=== PATIENT | male | born 1955 | race Caucasian/White ===

== ENCOUNTER 2020-07-29 19:10 | Inpatient (IN) | payer OTHER ==
[~2020-07-29] VITALS: Ht 182.9 cm; Wt 87.3 kg
--- NOTE | 2020-07-29 19:23 | NUR ---
BIB AMBULANCE FROM [facility]. PT C/O SOB X4 DAYS. TRACHEA SHIFT SEEN ON CT. PT CONNECTED TO MONITORING. CONTINUES ON OXYGEN 15L NON-REBREATHER. EKG COMPLETE. 2 PIV PATENT. PT BREATHING RAPID, BUT REGULAR BREATHING. PT DENIES HOME MEDS OR PMH. MD AT BEDSIDE FOR ASSESSMENT.
[2020-07-29] MEDS ORDERED: SODIUM CHLORIDE FLUSH 10ML SYR IVF ONE (19:30)
[2020-07-29] MEDS ORDERED: SODIUM CHLORIDE 0.9% 1,000ML IVBOLUS ONE (19:30)
[2020-07-29] MEDS ORDERED: OMNIPAQUE 350 MG/ML, 75ML BOTTLE ONE (19:48)
--- NOTE | 2020-07-29 19:53 | NUR ---
PT BACK FROM CT.
[2020-07-29] MEDS ORDERED: CEFTRIAXONE PMX 1GM/50ML 50 ML IVPB ONE (20:00)
[2020-07-29] MEDS ORDERED: CEFTRIAXONE PMX 1GM/50ML 50 ML ONE (20:08)
[2020-07-29 20:46] LABS: BASOPHILS % (AUTO) 0 % (0-1); EOSINOPHILS % (AUTO) 0 % (1-7); LYMPHOCYTES % (AUTO) 6 % (22-44); MEAN CORPUSCULAR HGB CONC 32.6 g/dL (33.2-36.2); MEAN PLATELET VOLUME 8.2 fL (7.4-10.4); MONOCYTES % (AUTO) 7 % (2-9); NEUTROPHILS % (AUTO) 87 % (42-75); PLATELET COUNT 306 x10^3/uL (130-400); RED BLOOD COUNT 5.52 x10^6/uL (4.38-5.82); RED CELL DISTRIBUTION WIDTH 14.2 % (9.4-14.8)
[2020-07-29 20:50] LABS: ALANINE AMINOTRANSFERASE 704 U/L (12-78); ALBUMIN 3.4 g/dL (3.4-5.0); ANION GAP 13 mmol/L (5-15); CALCIUM 9.6 mg/dL (8.5-10.1); CHLORIDE 102 mmol/L (98-107); CREATININE 1.31 mg/dL (0.7-1.3)
[2020-07-29 20:54] LABS: ALKALINE PHOSPHATASE 108 U/L (45-117); BILIRUBIN,TOTAL 2.1 mg/dL (0.2-1.0); TOTAL PROTEIN 6.9 g/dL (6.4-8.2); TROPONIN I < 0.015 ng/mL (0.000-0.045)
--- NOTE | 2020-07-29 21:25 | NUR ---
LEADERSHIP DEVELOPMENT MANAGER: CARDIOVASCULAR US TECH CALLED IN AT THIS TIME PER CARDS DR. MAZA REQUEST.
--- NOTE | 2020-07-29 21:30 | NUR ---
HOSPITALIST AT BEDSIDE.
[2020-07-29 21:33] LABS: MD SCAN
--- NOTE | 2020-07-29 21:39 | NUR ---
IR AT BEDSIDE.
[2020-07-29] MEDS ORDERED: LIDOCAINE 1%, 10ML ONE (21:41)
[2020-07-29] MEDS ORDERED: GUAIFENESIN/DM 200-20MG, 10ML UDC PO PRN (22:00)
[2020-07-29] MEDS ORDERED: SODIUM CHLORIDE 0.9% 1,000 ML IV SCH (22:00)
[2020-07-29] MEDS ORDERED: DOCUSATE 100 MG CAPSULE PO PRN (22:00)
[2020-07-29] MEDS ORDERED: ONDANSETRON 2MG/ML, 2ML IVPush PRN (22:00)
[2020-07-29] MEDS ORDERED: DIGOXIN 0.25 MG/ML, 2ML ONE (22:09)
--- NOTE | 2020-07-29 22:16 | NUR ---
BACKHOE OPERATOR, DR MAZA, AT BEDSIDE. RECEIVED V/O FOR DIGOXIN 0.5MG IV ONCE. MD STATES WILL INPUT ORDER. NO CHANGE IN HR. PT TO GO TO DESKIDDING MACHINE OPERATOR
[2020-07-29] MEDS ORDERED: DIGOXIN 0.25 MG/ML, 2ML IVPush ONE (22:30)
--- NOTE | 2020-07-29 22:32 | NUR ---
REPORT GIVEN TO ERIK MOON IN CCU. PT TO GO TO ROOM 548 AFTER ADVERTISING COORDINATOR.
[2020-07-29] MEDS ORDERED: FENTANYL PF 100 MCG/2ML ONE (23:00)
[2020-07-29] MEDS ORDERED: MIDAZOLAM 1 MG/ML, 5ML ONE (23:00)
[2020-07-29] MEDS ORDERED: LIDOCAINE 1%, 20ML ONE (23:00)
[2020-07-29] MEDS ORDERED: NOREPINEPHRINE 1 MG/ML, 4ML ONE ×2 (23:00→23:05)
--- NOTE | 2020-07-29 23:02 | NUR ---
report received from offgoing RN, pt a&ox4, calm and resting in bed, on cr monitor
[2020-07-30] MEDS ORDERED: MULT-257 PO (01:34)
[2020-07-30 02:28] LABS: CHLORIDE,URINE RANDOM 52 mmol/L; POTASSIUM,URINE RANDOM 56 mmol/L; SODIUM,URINE RANDOM 32 mmol/L
[2020-07-30 04:43] LABS: BASOPHILS % (AUTO) 0 % (0-1); EOSINOPHILS % (AUTO) 0 % (1-7); LYMPHOCYTES % (AUTO) 10 % (22-44); MEAN CORPUSCULAR HGB CONC 32.9 g/dL (33.2-36.2); MEAN PLATELET VOLUME 8.3 fL (7.4-10.4); MONOCYTES % (AUTO) 7 % (2-9); NEUTROPHILS % (AUTO) 83 % (42-75); PLATELET COUNT 284 x10^3/uL (130-400); RED BLOOD COUNT 5.24 x10^6/uL (4.38-5.82); RED CELL DISTRIBUTION WIDTH 13.7 % (9.4-14.8)
[2020-07-30 04:47] LABS: ALANINE AMINOTRANSFERASE 834 U/L (12-78); ALBUMIN 3.1 g/dL (3.4-5.0); ANION GAP 10 mmol/L (5-15); CALCIUM 8.8 mg/dL (8.5-10.1); CHLORIDE 106 mmol/L (98-107); CREATININE 1.07 mg/dL (0.7-1.3)
[2020-07-30 04:49] LABS: ALKALINE PHOSPHATASE 98 U/L (45-117); TOTAL PROTEIN 6.4 g/dL (6.4-8.2)
[2020-07-30 05:02] LABS: MD NO
[2020-07-30] MEDS: AZITHROMYCIN 500 MG in SODIUM CHLORIDE 0.9% 250 ML IV SCH (07:42)
[2020-07-30 08:39] LABS: ALBUMIN 3.3 g/dL (3.4-5.0); ANION GAP 12 mmol/L (5-15); CALCIUM 8.9 mg/dL (8.5-10.1); CHLORIDE 105 mmol/L (98-107)
[2020-07-30 08:42] LABS: ALANINE AMINOTRANSFERASE 861 U/L (12-78); ALKALINE PHOSPHATASE 99 U/L (45-117); BILIRUBIN,TOTAL 2.2 mg/dL (0.2-1.0); CREATININE 1.12 mg/dL (0.7-1.3); TOTAL PROTEIN 6.4 g/dL (6.4-8.2)
[2020-07-30] MEDS: methylPREDNISolone SOD SUCC 125 MG/2 ML IVPush SCH ×2 (12:37→18:22)
[2020-07-30] MEDS ORDERED: PHENYLEPHRINE 10 MG/ML ONE (15:55)
[2020-07-30] MEDS: CEFTRIAXONE PMX 1GM/50ML 50 ML IV SCH (20:29)
[2020-07-30 20:32] VITALS: BP 95/71
[2020-07-30 20:48] VITALS: BP 88/76
[2020-07-30 20:50] VITALS: BP 102/76
[2020-07-31] MEDS: methylPREDNISolone SOD SUCC 125 MG/2 ML IVPush SCH ×4 (00:30→18:12)
[2020-07-31 02:01] VITALS: BP 88/74
[2020-07-31 02:10] VITALS: BP 94/76
[2020-07-31 05:57] LABS: BASOPHILS % (AUTO) 0 % (0-1); EOSINOPHILS % (AUTO) 0 % (1-7); LYMPHOCYTES % (AUTO) 5 % (22-44); MEAN CORPUSCULAR HEMOGLOBIN 30.1 pg (27.5-34.5); MEAN CORPUSCULAR HGB CONC 32.9 g/dL (33.2-36.2); MEAN PLATELET VOLUME 8.9 fL (7.4-10.4); MONOCYTES % (AUTO) 4 % (2-9); NEUTROPHILS % (AUTO) 91 % (42-75); PLATELET COUNT 186 x10^3/uL (130-400); RED BLOOD COUNT 5.47 x10^6/uL (4.38-5.82)
[2020-07-31 05:59] LABS: MD NO
[2020-07-31] MEDS: AZITHROMYCIN 500 MG in SODIUM CHLORIDE 0.9% 250 ML IV SCH (06:50)
[2020-07-31 07:09] LABS: ANION GAP 13 mmol/L (5-15); CALCIUM 9.4 mg/dL (8.5-10.1); CHLORIDE 101 mmol/L (98-107); CREATININE 1.28 mg/dL (0.7-1.3)
[2020-07-31 07:43] VITALS: BP 100/67
[2020-07-31 12:21] VITALS: BP 97/71
[2020-07-31 19:32] VITALS: BP 99/76
[2020-07-31] MEDS: CEFTRIAXONE PMX 1GM/50ML 50 ML IV SCH (21:54)
[2020-08-01 00:51] VITALS: BP 124/85
[2020-08-01] MEDS: methylPREDNISolone SOD SUCC 125 MG/2 ML IVPush SCH ×4 (01:11→18:04)
[2020-08-01] MEDS: AZITHROMYCIN 500 MG in SODIUM CHLORIDE 0.9% 250 ML IV SCH (06:25)
[2020-08-01 06:50] VITALS: BP 108/77
[2020-08-01 12:14] VITALS: BP 102/74
[2020-08-01] MEDS ORDERED: MAALOX/HYOSCYAMINE/LIDOCAINE 45 ML BTL PO ONE (13:30)
[2020-08-01] MEDS: CEFTRIAXONE PMX 1GM/50ML 50 ML IV SCH (21:10)
[2020-08-01 21:13] VITALS: BP 104/74
[2020-08-02] MEDS: methylPREDNISolone SOD SUCC 125 MG/2 ML IVPush SCH ×5 (00:36→23:56)
[2020-08-02 00:37] VITALS: BP 101/72
[2020-08-02] MEDS: AZITHROMYCIN 500 MG in SODIUM CHLORIDE 0.9% 250 ML IV SCH (06:44)
[2020-08-02 08:59] VITALS: BP 93/64
[2020-08-02 13:24] VITALS: BP 93/66
[2020-08-02] MEDS: CEFTRIAXONE PMX 1GM/50ML 50 ML IV SCH (20:45)
[2020-08-02 20:48] VITALS: BP 115/79
[2020-08-03 00:07] VITALS: BP 118/75
[2020-08-03] MEDS: methylPREDNISolone SOD SUCC 125 MG/2 ML IVPush SCH ×3 (05:51→18:47)
[2020-08-03] MEDS: AZITHROMYCIN 500 MG in SODIUM CHLORIDE 0.9% 250 ML IV SCH (06:35)
[2020-08-03 07:37] VITALS: BP 121/72
[2020-08-03] MEDS ORDERED: LIDOCAINE 1%, 10ML ONE (12:25)
[2020-08-03 15:58] VITALS: BP 103/71
[2020-08-03] MEDS: CEFTRIAXONE PMX 1GM/50ML 50 ML IV SCH (21:09)
[2020-08-03 22:28] VITALS: BP 124/81
[2020-08-04] MEDS: methylPREDNISolone SOD SUCC 125 MG/2 ML IVPush SCH ×4 (01:00→18:07)
[2020-08-04 03:00] VITALS: BP 106/76
[2020-08-04] MEDS: AZITHROMYCIN 500 MG in SODIUM CHLORIDE 0.9% 250 ML IV SCH (06:19)
[2020-08-04 07:35] VITALS: BP 105/72
[2020-08-04] MEDS: ALBUTEROL HFA 90 MCG/SPRAY INH PRN ×2 (09:21→15:28)
[2020-08-04] MEDS: FUROSEMIDE 40 MG/4 ML IV SCH (09:22)
[2020-08-04] MEDS: CARVEDILOL 3.125 MG TABLET PO SCH ×2 (10:11→22:19)
[2020-08-04 13:40] VITALS: BP 99/60
[2020-08-04 22:15] VITALS: BP 100/68
[2020-08-04] MEDS: CEFTRIAXONE PMX 1GM/50ML 50 ML IV SCH (22:20)
[2020-08-05] MEDS: methylPREDNISolone SOD SUCC 125 MG/2 ML IVPush SCH ×5 (00:45→23:59)
[2020-08-05 00:49] VITALS: BP 104/65
[2020-08-05 05:22] LABS: MEAN CORPUSCULAR HGB CONC 32.7 g/dL (33.2-36.2); MEAN PLATELET VOLUME 8.5 fL (7.4-10.4); PLATELET COUNT 114 x10^3/uL (130-400); RED BLOOD COUNT 5.29 x10^6/uL (4.38-5.82); RED CELL DISTRIBUTION WIDTH 14.4 % (9.4-14.8)
[2020-08-05 05:29] LABS: ANION GAP 4 mmol/L (5-15); CALCIUM 8.8 mg/dL (8.5-10.1); CHLORIDE 102 mmol/L (98-107)
[2020-08-05 05:59] LABS: MD YES
[2020-08-05 06:02] LABS: LYMPH#(MANUAL) 0.23 x10^3/uL (1-3.4); LYMPHS% (MANUAL) 1 % (22-44); MONOS#(MANUAL) 1.13 x10^3/uL (0.3-2.7); MONOS% (MANUAL) 5 % (2-9); SEG#(MANUAL) 21.15 x10^3/uL (1.8-6.8); SEGS% (MANUAL) 94 % (42-75)
[2020-08-05 06:08] LABS: <PLATELET ESTIMATE> DECREASED; <PLT MORPHOLOGY> NORMAL PLT MORPH; ANISOCYTOSIS 1+
[2020-08-05 06:38] VITALS: BP 106/66
[2020-08-05] MEDS: AZITHROMYCIN 500 MG in SODIUM CHLORIDE 0.9% 250 ML IV SCH (06:43)
[2020-08-05] MEDS: CARVEDILOL 3.125 MG TABLET PO SCH ×2 (06:50→17:50)
[2020-08-05 07:30] VITALS: BP 98/77
[2020-08-05 08:35] VITALS: BP 117/74
[2020-08-05] MEDS: FUROSEMIDE 40 MG/4 ML IV SCH (08:42)
[2020-08-05 13:40] VITALS: BP 109/72
[2020-08-05] MEDS: ALBUTEROL HFA 90 MCG/SPRAY INH PRN (17:48)
[2020-08-05 19:09] VITALS: BP 108/74
[2020-08-05] MEDS: CEFTRIAXONE PMX 1GM/50ML 50 ML IV SCH (22:09)
[2020-08-06 00:13] VITALS: BP 106/68
[2020-08-06] MEDS: AZITHROMYCIN 500 MG in SODIUM CHLORIDE 0.9% 250 ML IV SCH (06:03)
[2020-08-06] MEDS: CARVEDILOL 3.125 MG TABLET PO SCH ×2 (06:03→17:23)
[2020-08-06] MEDS: methylPREDNISolone SOD SUCC 125 MG/2 ML IVPush SCH (06:03)
[2020-08-06 06:31] LABS: ANION GAP 3 mmol/L (5-15); CALCIUM 9.1 mg/dL (8.5-10.1); CHLORIDE 101 mmol/L (98-107)
[2020-08-06 07:46] LABS: MEAN CORPUSCULAR HGB CONC 32.5 g/dL (33.2-36.2); MEAN PLATELET VOLUME 8.6 fL (7.4-10.4); PLATELET COUNT 107 x10^3/uL (130-400); RED BLOOD COUNT 5.36 x10^6/uL (4.38-5.82); RED CELL DISTRIBUTION WIDTH 14.9 % (9.4-14.8)
[2020-08-06 08:48] LABS: MD YES
[2020-08-06 08:50] LABS: LYMPH#(MANUAL) 0.27 x10^3/uL (1-3.4); LYMPHS% (MANUAL) 1 % (22-44); MONOS#(MANUAL) 0.55 x10^3/uL (0.3-2.7); MONOS% (MANUAL) 2 % (2-9); SEG#(MANUAL) 26.48 x10^3/uL (1.8-6.8); SEGS% (MANUAL) 97 % (42-75)
[2020-08-06 08:51] LABS: <PLATELET ESTIMATE> DECREASED; <PLT MORPHOLOGY> NORMAL PLT MORPH; <RBC MORPHOLOGY> NORMAL
[2020-08-06 09:00] VITALS: BP 106/71
[2020-08-06] MEDS: FUROSEMIDE 40 MG/4 ML IV SCH (09:59)
[2020-08-06 14:20] VITALS: BP 107/60
[2020-08-06] MEDS ORDERED: HEPARIN 5,000 UNITS/ML, 1ML IV PRN (16:00)
[2020-08-06] MEDS ORDERED: HEPARIN 25,000 UNITS/250ML PMX 250 ML IV PRN (16:00)
[2020-08-06] MEDS ORDERED: HEPARIN 5,000 UNITS/ML, 1ML IV ONE (16:00)
[2020-08-06 19:53] VITALS: BP 117/76
[2020-08-07 00:33] VITALS: BP 115/75
[2020-08-07] MEDS: methylPREDNISolone SOD SUCC 125 MG/2 ML IVPush SCH ×3 (03:02→22:08)
[2020-08-07] MEDS: CEFTRIAXONE PMX 1GM/50ML 50 ML IV SCH (03:03)
[2020-08-07 06:28] VITALS: BP 127/85
[2020-08-07] MEDS: CARVEDILOL 3.125 MG TABLET PO SCH ×2 (06:29→17:02)
[2020-08-07 07:45] VITALS: BP 114/75
[2020-08-07] MEDS ORDERED: RIVAROXABAN 15 MG TABLET PO SCH (08:30)
[2020-08-07] MEDS: AZITHROMYCIN 500 MG in SODIUM CHLORIDE 0.9% 250 ML IV SCH (08:58)
[2020-08-07] MEDS: FUROSEMIDE 40 MG/4 ML IV SCH (08:59)
[2020-08-07] MEDS: RIVAROXABAN 15 MG TABLET PO SCH ×2 (09:01→17:01)
[2020-08-07 12:47] VITALS: BP 94/55
[2020-08-07 22:04] VITALS: BP 123/82
[2020-08-08 00:35] VITALS: BP 109/73
[2020-08-08] MEDS: CEFTRIAXONE PMX 1GM/50ML 50 ML IV SCH (03:15)
[2020-08-08] MEDS: CARVEDILOL 3.125 MG TABLET PO SCH ×2 (05:53→18:20)
[2020-08-08 05:56] VITALS: BP 123/89
[2020-08-08 07:07] VITALS: BP 111/73
[2020-08-08 07:11] LABS: ANION GAP 2 mmol/L (5-15); CALCIUM 9.2 mg/dL (8.5-10.1); CHLORIDE 100 mmol/L (98-107); CREATININE 0.85 mg/dL (0.7-1.3)
[2020-08-08 07:19] LABS: BASOPHILS % (AUTO) 0 % (0-1); EOSINOPHILS % (AUTO) 0 % (1-7); LYMPHOCYTES % (AUTO) 2 % (22-44); MEAN CORPUSCULAR HGB CONC 32.6 g/dL (33.2-36.2); MEAN PLATELET VOLUME 8.6 fL (7.4-10.4); MONOCYTES % (AUTO) 4 % (2-9); NEUTROPHILS % (AUTO) 94 % (42-75); PLATELET COUNT 128 x10^3/uL (130-400); RED BLOOD COUNT 5.78 x10^6/uL (4.38-5.82); RED CELL DISTRIBUTION WIDTH 14.5 % (9.4-14.8)
[2020-08-08 08:08] LABS: MD SCAN
[2020-08-08] MEDS: RIVAROXABAN 15 MG TABLET PO SCH ×2 (10:10→18:20)
[2020-08-08] MEDS: FUROSEMIDE 40 MG/4 ML IV SCH (10:10)
[2020-08-08] MEDS: AZITHROMYCIN 500 MG in SODIUM CHLORIDE 0.9% 250 ML IV SCH (10:11)
[2020-08-08] MEDS: methylPREDNISolone SOD SUCC 125 MG/2 ML IVPush SCH ×2 (10:11→21:10)
[2020-08-08] MEDS: HYDROcodone/APAP 5/325 TABLET PO PRN ×2 (13:11→18:25)
[2020-08-08 13:22] VITALS: BP 114/75
[2020-08-08 20:12] VITALS: BP 121/85
[2020-08-09 00:44] VITALS: BP 110/79
[2020-08-09] MEDS: HYDROcodone/APAP 5/325 TABLET PO PRN ×4 (00:45→22:19)
[2020-08-09] MEDS: CEFTRIAXONE PMX 1GM/50ML 50 ML IV SCH (03:23)
[2020-08-09 05:25] VITALS: BP 119/81
[2020-08-09] MEDS: CARVEDILOL 3.125 MG TABLET PO SCH ×2 (05:26→17:39)
[2020-08-09 07:29] VITALS: BP 121/79
[2020-08-09] MEDS: methylPREDNISolone SOD SUCC 125 MG/2 ML IVPush SCH ×2 (09:06→22:19)
[2020-08-09] MEDS: RIVAROXABAN 15 MG TABLET PO SCH ×2 (09:06→17:39)
[2020-08-09] MEDS: FUROSEMIDE 40 MG/4 ML IV SCH (09:06)
[2020-08-09] MEDS: AZITHROMYCIN 500 MG in SODIUM CHLORIDE 0.9% 250 ML IV SCH (09:06)
[2020-08-09] MEDS: ALBUTEROL HFA 90 MCG/SPRAY INH PRN (12:32)
[2020-08-09 13:25] VITALS: BP 106/72
[2020-08-09 19:11] VITALS: BP 124/83
[2020-08-10 00:20] VITALS: BP 120/85
[2020-08-10] MEDS: CEFTRIAXONE PMX 1GM/50ML 50 ML IV SCH (03:23)
[2020-08-10] MEDS: HYDROcodone/APAP 5/325 TABLET PO PRN ×4 (04:40→21:53)
[2020-08-10 06:06] VITALS: BP 113/76
[2020-08-10] MEDS: CARVEDILOL 3.125 MG TABLET PO SCH ×2 (06:12→17:46)
[2020-08-10 07:28] VITALS: BP 117/82
[2020-08-10] MEDS: methylPREDNISolone SOD SUCC 125 MG/2 ML IVPush SCH (08:56)
[2020-08-10] MEDS: RIVAROXABAN 15 MG TABLET PO SCH ×2 (08:56→17:46)
[2020-08-10] MEDS: FUROSEMIDE 40 MG/4 ML IV SCH (08:56)
[2020-08-10] MEDS: AZITHROMYCIN 500 MG in SODIUM CHLORIDE 0.9% 250 ML IV SCH (08:59)
[2020-08-10] MEDS: ALBUTEROL HFA 90 MCG/SPRAY INH PRN (09:12)
[2020-08-10 12:19] VITALS: BP 114/79
[2020-08-10 21:19] VITALS: BP 128/83
[2020-08-10] MEDS: CEFDINIR 300 MG CAPSULE PO SCH (21:53)
[2020-08-11 02:12] VITALS: BP 116/83
[2020-08-11] MEDS: HYDROcodone/APAP 5/325 TABLET PO PRN ×3 (03:58→16:53)
[2020-08-11 05:30] VITALS: BP 119/86
[2020-08-11] MEDS: CARVEDILOL 3.125 MG TABLET PO SCH (05:31)
[2020-08-11 05:51] LABS: ALANINE AMINOTRANSFERASE 127 U/L (12-78); ALBUMIN 2.8 g/dL (3.4-5.0); ANION GAP 2 mmol/L (5-15); CALCIUM 9.3 mg/dL (8.5-10.1); CHLORIDE 100 mmol/L (98-107); CREATININE 0.89 mg/dL (0.7-1.3)
[2020-08-11 05:53] LABS: ALKALINE PHOSPHATASE 86 U/L (45-117); BILIRUBIN,TOTAL 2.4 mg/dL (0.2-1.0)
[2020-08-11 05:56] LABS: BASOPHILS % (AUTO) 0 % (0-1); EOSINOPHILS % (AUTO) 0 % (1-7); LYMPHOCYTES % (AUTO) 6 % (22-44); MEAN CORPUSCULAR HEMOGLOBIN 30.1 pg (27.5-34.5); MEAN CORPUSCULAR HGB CONC 32.7 g/dL (33.2-36.2); MEAN PLATELET VOLUME 8.3 fL (7.4-10.4); MONOCYTES % (AUTO) 6 % (2-9); NEUTROPHILS % (AUTO) 88 % (42-75); PLATELET COUNT 121 x10^3/uL (130-400); RED BLOOD COUNT 6.02 x10^6/uL (4.38-5.82)
[2020-08-11 06:44] LABS: MD SCAN
[2020-08-11 07:00] VITALS: BP 118/82
[2020-08-11] MEDS: CEFDINIR 300 MG CAPSULE PO SCH (08:43)
[2020-08-11] MEDS: RIVAROXABAN 15 MG TABLET PO SCH ×2 (08:43→16:52)
[2020-08-11] MEDS ORDERED: FUROSEMIDE 40 MG TABLET PO SCH (09:00)
[2020-08-11] MEDS: ALBUTEROL HFA 90 MCG/SPRAY INH PRN (11:55)
[2020-08-11 12:15] VITALS: BP 118/84
[2020-08-11] MEDS ORDERED: ALBU18HF INH (14:09)
[2020-08-11] MEDS ORDERED: RIVA20TA PO (14:09)
[2020-08-11] MEDS ORDERED: METH4TAB2 PO (14:09)
[2020-08-11] MEDS ORDERED: RIVA15TA PO (14:09)
[2020-08-11] MEDS ORDERED: FURO40TA6 PO (14:09)
[2020-08-11] MEDS ORDERED: CARV3.1212 PO (14:09)
[2020-08-11] MEDS ORDERED: HYDR-3237 PO (14:13)
[2020-08-28] MEDS ORDERED: RIVAROXABAN 20 MG TABLET PO SCH (17:00)
== END 2020-08-11 16:39 | disposition home or self-care (01) | DRG 166 ==
LOC: ED 21:00 → CCU 21:38 → 5SO 07-30 16:10 → DCLOUNGE 08-11 16:15
PROVIDERS: ADMIT Family Medicine; ATTEND Internal Medicine
PROC: 0W9D3ZZ Drainage of Pericardial Cavity, Percutaneous Approach (ICD-10-PCS; 2020-07-30)
PROC: 0WBC3ZX Excision of Mediastinum, Percutaneous Approach, Diagnostic (ICD-10-PCS; principal; 2020-08-03)
PROC: 0W9B3ZZ Drainage of Left Pleural Cavity, Percutaneous Approach (ICD-10-PCS; 2020-08-03)
PROC: 5A0935A Assistance with Respiratory Ventilation, Less than 24 Consecutive Hours, High Flow/Velocity Cannula (ICD-10-PCS; 2020-08-04)
PROC: 5A0935A Assistance with Respiratory Ventilation, Less than 24 Consecutive Hours, High Flow/Velocity Cannula (ICD-10-PCS; 2020-08-05)
DX: J96.01 Acute respiratory failure with hypoxia (principal); J98.59 Other diseases of mediastinum, not elsewhere classified; I26.09 Other pulmonary embolism with acute cor pulmonale; I50.43 Acute on chronic combined systolic (congestive) and diastolic (congestive) heart failure; N17.0 Acute kidney failure with tubular necrosis; I31.3 Pericardial effusion (noninflammatory); I31.4 Cardiac tamponade; I42.9 Cardiomyopathy, unspecified; I47.1 Supraventricular tachycardia; J44.1 Chronic obstructive pulmonary disease with (acute) exacerbation; J91.0 Malignant pleural effusion; Z20.828 Contact with and (suspected) exposure to other viral communicable diseases; I11.0 Hypertensive heart disease with heart failure; F17.200 Nicotine dependence, unspecified, uncomplicated; I08.3 Combined rheumatic disorders of mitral, aortic and tricuspid valves; I27.20 Pulmonary hypertension, unspecified; I48.91 Unspecified atrial fibrillation; R93.89 Abnormal findings on diagnostic imaging of other specified body structures; S90.821A Blister (nonthermal), right foot, initial encounter; S90.822A Blister (nonthermal), left foot, initial encounter; R74.01 Elevation of levels of liver transaminase levels; Z51.5 Encounter for palliative care; Z66 Do not resuscitate; Z79.01 Long term (current) use of anticoagulants; Z82.5 Family history of asthma and other chronic lower respiratory diseases; Z79.899 Other long term (current) drug therapy; X58.XXXA Exposure to other specified factors, initial encounter; Y93.89 Activity, other specified; Y92.89 Other specified places as the place of occurrence of the external cause; Y99.8 Other external cause status
CPT/HCPCS: 33016; 36415; 36600; 89051; 96365; 96375; 99291; J3490; 20206; 32555; 33010; 71045; 71260; 76942; 80048; 80053; 80074; 82436; 82803; 83605; 83615; 84133; 84157; 84300; 84484; 85025; 85520; 86706; 87040; 87070; 87081; 87205; 87635; 88112; 88305; 88341; 88342; 88360; 93005; 93306; 93308; 93321; 93325; 93970; 99156; 99157; C1769; G0378; J0456; J0696; J1644; J1940; J2250; J3010; Q9967; J1160; J2370; J2930; J7030; J7050; J7512